=== PATIENT | male | born 1980 | race Two or more races ===

== ENCOUNTER 2019-03-26 21:37 | Emergency (ER) | payer BC ==
[~2019-03-26] VITALS: Ht 198.1 cm; Wt 163.3 kg
[2019-03-26 22:15] VITALS: BP 112/73
[2019-03-26] MEDS ORDERED: Acetaminophen 500mg (ES) tab ORAL ONE (22:30)
[2019-03-26] MEDS ORDERED: Dexamethasone 4mg/ml vial IM ONE (22:30)
[2019-03-26] MEDS ORDERED: TYLENOL EXTRA500 MG ORAL (22:30)
[2019-03-26] MEDS ORDERED: AMOXICILLIN500 MG ORAL (22:30)
[2019-03-26] MEDS ORDERED: RANITIDINE HCL150 MG ORAL (22:30)
[2019-03-26 22:43] VITALS: BP 112/73
--- NOTE | 2019-03-27 05:03 | Emergency Room Report ---
History of Present Illness General Chief Complaint: Upper Respiratory Illness Source: Patient Present Illness HPI 38-year-old male presents ED for evaluation. Complaining of sore throat and cough for the last 4 days. Pain is dull, 9 out of 10, nonradiating. Fevers and chills. States he is unable to swallow. Denies sick contacts or recent travel. No other aggravating relieving factors. Denies any other associated symptoms Allergies: Coded Allergies: No Known Allergies (Unverified , 03/26/19) Patient History Past Medical History: none Past Surgical History: none Pertinent Family History: none Social History: Denies: smoking, alcohol use, drug use Immunizations: UTD Reviewed Nursing Documentation: PMH: Agreed; PSxH: Agreed Nursing Documentation-PMH Past Medical History: No Stated History Review of Systems All Other Systems: negative except mentioned in HPI Physical Exam Vital Signs Date Time Temp Pulse Resp B/P (MAP) Pulse Ox O2 Delivery O2 Flow Rate FiO2 03/26/19 21:57 98.1 132 24 112/73 (86) 95 Room Air Sp02 EP Interpretation: reviewed, normal General Appearance: no apparent distress, alert, GCS 15, non-toxic Head: normocephalic Eyes: bilateral eye normal inspection, bilateral eye PERRL ENT: hearing grossly normal, no angioedema, normal voice, pharyngeal erythema, tonsillar exudate Neck: normal inspection, full range of motion, supple, no meningismus Respiratory: chest non-tender, lungs clear, normal breath sounds, speaking full sentences Cardiovascular #1: normal inspection Gastrointestinal: normal inspection Rectal: deferred Genitourinary: no CVA tenderness Musculoskeletal: normal inspection Neurologic: alert, motor strength/tone normal, oriented x3, sensory intact, responsive, speech normal Psychiatric: judgement/insight normal, memory normal, mood/affect normal, no suicidal/homicidal ideation Skin: no rash Lymphatic: normal inspection Medical Decision Making Diagnostic Impression: Primary Impression: Pharyngitis Qualified Codes: J02.9 - Acute pharyngitis, unspecified ER Course Hospital Course 38-year-old male presents to ED complaining of sore throat + fever Differential diagnoses include: URI, pharyngitis, otitis media Clinical course Patient placed on stretcher. After initial history, physical exam reveals a male in no acute distress. Bilateral TM unremarkable. There is pharyngeal erythema w/ tonsillar exudates. Clinical findings consistent with pharyngitis. Tariq findings with patient. Given Decadron in ED. Given Tylenol for fever. Will discharge to home with antibiotics. Safe for discharge with close outpatient follow-up. I will provide referrals Diagnosis - pharyngitis Stable and discharged home with prescriptions for Motrin, amoxicillin, zantac. Instructed to followup with PMD. return to ED if symptoms recur or worsen Last Vital Signs Date Time Temp Pulse Resp B/P (MAP) Pulse Ox O2 Delivery O2 Flow Rate FiO2 03/26/19 22:43 98.1 109 24 112/73 95 Room Air Status: improved Disposition: HOME, SELF-CARE Condition: Stable Scripts Ranitidine Hcl* (ZANTAC*) 150 Mg Tablet 150 MG ORAL TWICE A DAY, #30 TAB Prov: Sohail Drummond MD 03/26/19 Acetaminophen* (TYLENOL EXTRA STRENGTH*) 500 Mg Tablet 500 MG ORAL Q8H PRN for Prn Headache/Temp > 101, #30 TAB 0 Refills Prov: Sohail Drummond MD 03/26/19 Amoxicillin* (AMOXIL*) 500 Mg Capsule 500 MG ORAL THREE TIMES A DAY, #21 CAP Prov: Sohail Drummond MD 03/26/19 Referrals: NOT CHOSEN IPA/,REFERRING (PCP) Brenna Tirado [facility]. [facility] Patient Instructions: Pharyngitis, [id number] Sohail Drummond MD Mar 27, 2019 05:03
== END 2019-03-26 22:43 | disposition home or self-care (01) ==
LOC: EMR 22:26
DX: J02.9 Acute pharyngitis, unspecified (principal)
CPT/HCPCS: 96372; 99283; J1100